=== PATIENT | male | born 1960 | race African-American/Black ===

== ENCOUNTER 2019-01-14 17:53 | Emergency (ER) | payer SELFPAY ==
[~2019-01-14] VITALS: Ht 175.3 cm; Wt 80.0 kg
[2019-01-14] MEDS ORDERED: SODIUM CHLORIDE 0.9% 1,000 ML IV ONE (18:40)
[2019-01-14] MEDS ORDERED: ONDANSETRON HCL 4MG/2ML INJ IV STA (18:40)
[2019-01-14] MEDS ORDERED: LORAZEPAM 2MG/ML CPJ IM ONE (18:45)
[2019-01-14 19:11] LABS: BASOPHILS % 1.7 % (0.0-2.0); EOSINOPHILS % 13.2 % (0.0-5.0); HEMATOCRIT. 37.8 % (42.0-52.0); HEMOGLOBIN. 13.1 g/dL (14.0-18.0); LYMPHOCYTES % 29.9 % (20.0-50.0); MEAN CORPUSCULAR HEMOGLOBIN 31.6 pg (28.0-32.0); MEAN CORPUSCULAR VOLUME 91.2 fL (80.0-94.0); MEAN PLATELET VOLUME 9.2 fl (7.4-10.4); MONOCYTES % 10.2 % (2.0-8.0); PLATELET 130 x1000/uL (130-400); RED BLOOD CELL COUNT 4.14 mill/uL (4.7-6.1); RED CELL DISTRIBUTION WIDTH 13.1 % (11.6-14.6)
[2019-01-14 19:19] LABS: CHLORIDE 108 mEq/L (98-107)
[2019-01-14 19:23] LABS: ETHANOL BLOOD 231 mg/dL
[2019-01-14] MEDS ORDERED: FOLIC ACID 1 MG, THIAMINE HCL 100 MG, MVI, ADULT NO.1 10 ML in DEXTROSE 5% WATER 1,000 ML IV ONE ×4 (23:00)
[2019-01-15 10:54] VITALS: BP 113/94
== END 2019-01-15 10:57 | disposition home or self-care (01) ==
LOC: ER 17:53 → EDBD 17:53 → ER 01-15 10:57
DX: T51.0X1A Toxic effect of ethanol, accidental (unintentional), initial encounter (principal); G92 Toxic encephalopathy; Y90.8 Blood alcohol level of 240 mg/100 ml or more; Z59.0 Homelessness; Z79.899 Other long term (current) drug therapy; Y92.89 Other specified places as the place of occurrence of the external cause
CPT/HCPCS: 36415; 80053; 80320; 84484; 85025; 93005; 96365; 96372; 99284; J2060; J3411; J3490; J7030; J7070; Z7610; A4315; G0480